=== PATIENT | female | born 2000 | race Caucasian/White ===

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

== ENCOUNTER → 2021-07-06 | Outpatient (CLI) | payer OTHER ==
[~2021-07-06] MED LIST changes: +ACHD5005 PO; -HYDR-3812 PO
--- NOTE | 2021-07-06 11:48 | Diagnostic Imaging Report ---
PROCEDURE: Pelvic comp/transvaginal sonogram. TECHNIQUE: Complete transabdominal and transvaginal pelvic ultrasound was performed. In addition, limited pelvic Doppler was performed. INDICATION: Pelvic pain. Uterus is retroverted measuring 6.3 x 3.9 x 4.5 cm. Endometrium is 6 mm in thickness. No myometrial mass is detected. Right ovary measures 3.0 x 2.0 x 3.5 cm, left ovary measures 3.0 x 2.0 x 2.5 cm. Left ovary contains a partially collapsed cyst measuring 9 mm in size. Both ovaries demonstrate blood flow. No adnexal mass is seen. There is trace free fluid present. IMPRESSION: Small partially collapsed left ovarian cyst. The study is otherwise unremarkable. Dictated by: Dictated on workstation # [id number]
== END ==
LOC: RAD 09:37
PROVIDERS: ATTEND Obstetrics & Gynecology
DX: N83.202 Unspecified ovarian cyst, left side (principal)
CPT/HCPCS: 76830; 76856

== ENCOUNTER 2022-07-08 04:59 | Inpatient (IN) | payer MEDICAID ==
[2022-07-08] VITALS (39 sets, daily range): BP systolic 101–169; BP diastolic 53–89
[~2022-07-08] VITALS: Ht 165.1 cm; Wt 89.2 kg
[2022-07-08 05:30] LABS: BILIRUBIN,URINE NEGATIVE (NEGATIVE); CLARITY,URINE SL CLOUDY; COLOR,URINE YELLOW; GLUCOSE, URINE (UA) NEGATIVE (NEGATIVE); KETONES,URINE NEGATIVE (NEGATIVE); LEUKOCYTE ESTERASE ,URINE TRACE (NEGATIVE); NITRITE,URINE NEGATIVE (NEGATIVE); PH,URINE 6.5 (5-9); PROTEIN,URINE NEGATIVE (NEGATIVE)
[2022-07-08 05:48] LABS: BACTERIA,URINE FEW /HPF
[2022-07-08] MEDS ORDERED: CATHETER FLUSH 10 ML SYR IV SCH ×2 (06:00→14:00)
[2022-07-08] MEDS ORDERED: MINERAL OIL 30 ML UDC TOP PRN (06:00)
[2022-07-08] MEDS ORDERED: LIDOCAINE/EPI 2% 1:200,00 (XYLOCAINE) 10 ML VIAL INJ PRN (06:00)
[2022-07-08] MEDS ORDERED: D5 LR IV SOLUTION 1,000 ML IV SCH (06:00)
[2022-07-08] MEDS ORDERED: BUTORPHANOL INJ 2 MG/ML (STADOL) VIAL IV ONE (06:00)
[2022-07-08] MEDS ORDERED: BUTORPHANOL INJ 2 MG/ML (STADOL) VIAL ONE (06:05)
[2022-07-08 06:06] LABS: BASOPHILS % (AUTO) 0 % (0-10); EOSINOPHILS % (AUTO) 0 % (0-10); HEMATOCRIT 36 % (35-52); HEMOGLOBIN 12.1 g/dL (11.5-16.0); LYMPHOCYTES # (AUTO) 2.2 10^3/uL (1.0-4.0); LYMPHOCYTES % (AUTO) 14 % (12-44); MEAN CORPUSCULAR HEMOGLOBIN 30 pg (25-34); MEAN CORPUSCULAR HGB CONC 34 g/dL (32-36); MEAN CORPUSCULAR VOLUME 89 fL (80-99); MEAN PLATELET VOLUME 11.7 fL (9.0-12.2); MONOCYTES # (AUTO) 0.8 10^3/uL (0.0-1.0); MONOCYTES % (AUTO) 5 % (0-12); NEUTROPHILS # (AUTO) 12.3 10^3/uL (1.8-7.8); NEUTROPHILS % (AUTO) 80 % (42-75); PLATELET COUNT 198 10^3/uL (130-400); WHITE BLOOD COUNT 15.4 10^3/uL (4.3-11.0)
[2022-07-08] MEDS ORDERED: fentaNYL 2 mcg/ml BUPIVA 0.125 100 ML ONE (06:06)
[2022-07-08] MEDS ORDERED: LACTATED RINGERS 1,000 ML IV ONE (06:06)
[2022-07-08] MEDS ORDERED: BUPIVACAINE 0.25% 30 ML (SENSORCAINE) VIAL ONE (07:02)
[2022-07-08] MEDS ORDERED: fentaNYL INJ 100 MCG/2 ML AMP ONE (07:02)
[2022-07-08] MEDS ORDERED: diphenhydrAMINE 50 MG/ML INJ (BENADRYL) IV PRN (07:45)
[2022-07-08] MEDS ORDERED: LACTATED RINGERS 1,000 ML IV SCH (07:45)
[2022-07-08] MEDS ORDERED: ONDANSETRON 4 MG/2 ML (SDV) Z0FRAN IV PRN (07:45)
[2022-07-08] MEDS ORDERED: fentaNYL 2 mcg/ml BUPIVA 0.125 100 ML EPI SCH (07:45)
[2022-07-08] MEDS ORDERED: NALOXONE 0.4 MG/ML 1 ML (NARCAN) VIAL IV PRN (07:45)
[2022-07-08] MEDS ORDERED: OXYTOCIN PRE-MIX DRIP 500 ML IV ONE ×2 (09:32→11:25)
[2022-07-08] MEDS: OXYTOCIN PRE-MIX DRIP 500 ML IV SCH ×2 (10:56→11:26)
--- NOTE | 2022-07-08 11:22 | History & Physical-OB ---
OB - Chief Complaint & HPI Date/Time Date of Admission: Date of Admission: Jul 08, 2022 at 05:57 Date seen by a Provider: Jul 08, 2022 Time Seen by a Provider: 10:10 Chief Complaint/History Hx : 1 Hx Para: 0 Expected Date of Delivery: Jul 08, 2022 Gestational Age in Weeks: 40 Gestational Age in Days: 0 History of Labs O+, Ab neg, Rub Imm HIV/RPR/HepB/C NR GBS neg Allergies and Home Medications Allergies Coded Allergies: No Known Drug Allergies (Unverified , 02/16/18) Patient Home Medication List Home Medication List Reviewed: Yes Amoxicillin/Potassium Clav (Augmentin 500-125 Tablet) 1 Each Tablet, 1 TAB PO BID Prescribed by: ADDY LOPEZ on 02/19/18 1029 Cefdinir (Cefdinir) 300 Mg Capsule, 300 MG PO BID Prescribed by: KRYSTIN BALDERRAMA on 03/23/18 0103 Ferrous Sulfate (Iron) 325 Mg Tablet, 325 MG PO DAILY, (Reported) Entered as Reported by: LINDSAY IBARRA on 02/16/18 0857 Hydrocodone Bit/Acetaminophen (Lortab 5 Mg Tablet) 1 Each Tablet, 1-2 TAB PO Q4H PRN for PAIN Prescribed by: ADDY LOPEZ on 02/19/18 1029 OB - History Hx of Present Care: Yes Ultrasounds: Normal mid trimester US Obstetrical Complications: None Medical Complications: None Obstetrical History Hx : 1 Hx Para: 0 Delivery History Hx Blood Disorders: Yes (ANEMIA) Adverse Rxn to Tranfusion: No (HAS HAD BLOOD WITH NO REACTION) Patient Past Medical History N/A Social History/Family History Alcohol Use: Denies Use Recreational Drug Use: No 2nd Hand Smoke Exposure: No Immunizations Hepatitis A: No Hepatitis B: No Tetanus Booster (TDap): Less than 5yrs Rubella: immune RPR/VDRL: Negative GBS Status: Negative HBsAG: Negative OB - Admission Exam Physical Exam Vitals: Vital Signs 07/08/22 07/08/22 09:45 10:00 Temp 36.6 Pulse 69 Resp 18 B/P (MAP) 130/85 (100) Pulse Ox 98 O2 Delivery Room Air HEENT: NCAT Heart: Rhythm Normal Lungs: Clear Abdomen: Gravid Cervical Dilatation: 10cm Effacement: 100% Station: +1 Membranes: Ruptured Amniotic Fluid: Clear Heart Rate: 140's Accelerations: Accelerations Present Decelerations: No Decelerations Associate Quality Engineer Variability: Average (6-25) Contractions on Admission: < 5 Minutes Apart Labs Laboratory Tests Test 07/08/22 05:10 07/08/22 05:47 Range/Units Urine Color YELLOW Urine Clarity SL CLOUDY Urine pH 6.5 5-9 Urine Specific [place] 1.020 1.016-1.022 Urine Protein NEGATIVE NEGATIVE Urine Glucose (UA) NEGATIVE NEGATIVE Urine Ketones NEGATIVE NEGATIVE Urine Nitrite NEGATIVE NEGATIVE Urine Bilirubin NEGATIVE NEGATIVE Urine Urobilinogen 0.2 < = 1.0 MG/DL Urine Leukocyte Esterase TRACE H NEGATIVE Urine RBC (Auto) NEGATIVE NEGATIVE Urine RBC NONE /HPF Urine WBC 2-5 /HPF Urine Squamous Epithelial Cells 5-10 /HPF Urine Crystals NONE /LPF Urine Bacteria FEW H /HPF Urine Casts NONE /LPF Urine Mucus SMALL H /LPF Urine Culture Indicated YES White Blood Count 15.4 H 4.3-11.0 10^3/uL Red Blood Count 4.04 3.80-5.11 10^6/uL Hemoglobin 12.1 11.5-16.0 g/dL Hematocrit 36 35-52 % Mean Corpuscular Volume 89 80-99 fL Mean Corpuscular Hemoglobin 30 25-34 pg Mean Corpuscular Hemoglobin Concent 34 32-36 g/dL Red Cell Distribution Width 14.0 10.0-14.5 % Platelet Count 198 130-400 10^3/uL Mean Platelet Volume 11.7 9.0-12.2 fL Immature Granulocyte % (Auto) 1 % Neutrophils (%) (Auto) 80 H 42-75 % Lymphocytes (%) (Auto) 14 12-44 % Monocytes (%) (Auto) 5 0-12 % Eosinophils (%) (Auto) 0 0-10 % Basophils (%) (Auto) 0 0-10 % Neutrophils # (Auto) 12.3 H 1.8-7.8 10^3/uL Lymphocytes # (Auto) 2.2 1.0-4.0 10^3/uL Monocytes # (Auto) 0.8 0.0-1.0 10^3/uL Eosinophils # (Auto) 0.0 0.0-0.3 10^3/uL Basophils # (Auto) 0.0 0.0-0.1 10^3/uL Immature Granulocyte # (Auto) 0.1 0.0-0.1 10^3/uL OB - Assessment/Plan/Diagnosis Assessment Assessment: active labor Admission Dx Third Trimester 40 week gestation Admission Status: Inpatient Order (span 2 midnights) Reason for Inpatient Admission: Active labor Plan Other Plan 22 yo @ 40.0 wga here in active labor Plan - GBS neg - Epidural for pain control - Expectant management LIZETH QUINTEROS MD Jul 08, 2022 11:22
--- NOTE | 2022-07-08 11:32 | OB Labor & Delivery Record ---
Vag Delivery Note Vag Delivery Note Date of Delivery: 07/08/22 Preoperative Diagnosis: Sofy Celeste is a (22 /Para 1/0,Gestational Age (wks)40.0 here in active labor Postoperative Diagnosis: Same Surgeon: LIZETH QUINTEROS MD Scroll Shear Operator: None Anesthesia: Epidural Delivery Type: @ 1050 Findings: Viable female , apgars 8/9, weight 7#8, 3396 grams Lacerations: Right labial and left periurethral Intact placenta with 3 vessel cord. No nuchal cord, body cord or shoulder dystocia Estimated Blood Loss: 120 ml Complications: None Condition: Stable Description of Procedure: The patient is a 22 year old female who presented in active labor. She was admitted and informed consent was obtained. Her labor course was unremarkable. She progressed to complete dilatation and began to push. She was then set up for delivery. The infant's head was delivered atraumatically in the ZOHREH position. The shoulders and remainder of the infant's body were then delivered without difficulty. Upon delivery, the head was held below the level of the perineum and the mouth and nares were bulb suctioned. The cord was doubly clamped and cut by FOB after 3 min delay and the was attended on maternal abdomen by the pediatric staff. An intact placenta with 3-vessel cord delivered via Sandeep and there was found to be minimal bleeding.~ Vigorous fundal massage was performed and the fundus was found to be firm. IV oxytocin was given. Examination of the vagina and perineum revealed a left labial and right tyler urethral laceration repaired in the usual fashion with 3-0 vicryl suture. Following the repair, sponge, instrument and needle counts were correct. Mom and baby were both in stable condition in the labor suite. Vitals - Labs Vital Signs - I&O Vital Signs Date Time Temp Pulse Resp B/P (MAP) Pulse Ox O2 Delivery O2 Flow Rate FiO2 07/08/22 10:00 36.6 69 18 130/85 (100) Room Air 07/08/22 09:45 64 18 136/84 (101) 98 Room Air 07/08/22 09:30 65 18 132/81 (98) 97 Room Air 07/08/22 09:15 68 18 123/66 (85) 97 Room Air 07/08/22 09:00 68 18 125/72 (89) 97 Room Air 07/08/22 08:42 71 18 122/70 (87) 96 Room Air 07/08/22 08:25 69 18 101/53 (69) 95 Room Air 07/08/22 08:10 36.8 67 18 123/71 (88) 97 Room Air 07/08/22 07:48 71 18 121/70 (87) 96 Room Air 07/08/22 07:43 70 18 133/80 (97) 96 Room Air 07/08/22 07:39 81 18 128/73 (91) 97 Room Air 07/08/22 07:36 71 20 119/75 (90) 97 Room Air 07/08/22 07:33 66 20 128/78 (95) 96 Room Air 07/08/22 07:30 69 18 135/83 (100) 96 Room Air 07/08/22 07:27 77 18 132/89 (103) 96 Room Air 07/08/22 07:24 68 20 137/82 (100) 99 Room Air 07/08/22 07:21 64 20 148/83 (104) 98 Room Air 07/08/22 07:18 67 20 149/87 (107) 98 Room Air 07/08/22 07:14 67 20 141/86 (104) 98 Room Air 07/08/22 07:12 36.5 77 18 136/74 (94) 97 Room Air 07/08/22 07:00 68 20 153/76 (101) Room Air 07/08/22 06:45 72 20 169/84 (112) Room Air 07/08/22 06:28 63 20 148/75 (99) Room Air 07/08/22 06:13 68 20 129/74 (92) Room Air 07/08/22 05:19 36.4 61 18 97 Room Air 07/08/22 05:15 36.4 61 18 97 Room Air 07/08/22 05:13 36.4 61 20 141/81 (101) 97 Room Air Labs Laboratory Tests 07/08/22 05:10: Urine Color YELLOW, Urine Clarity SL CLOUDY, Urine pH 6.5, Urine Specific [place] 1.020, Urine Protein NEGATIVE, Urine Glucose (UA) NEGATIVE, Urine Ketones NEGATIVE, Urine Nitrite NEGATIVE, Urine Bilirubin NEGATIVE, Urine Ur obilinogen 0.2, Urine Leukocyte Esterase TRACEH, Urine RBC (Auto) NEGATIVE, Urine RBC NONE, Urine WBC 2-5, Urine Squamous Epithelial Cells 5-10, Urine Crystals NONE, Urine Bacteria FEWH, Urine Casts NONE, Urine Mucus SMALLH, Urine Culture Indicated YES 07/08/22 05:47: White Blood Count 15.4H, Red Blood Count 4.04, Hemoglobin 12.1, Hematocrit 36, Mean Corpuscular Volume 89, Mean Corpuscular Hemoglobin 30, Mean Corpuscular Hem oglobin Concent 34, Red Cell Distribution Width 14.0, Platelet Count 198, Mean Platelet Volume 11.7, Immature Granulocyte % (Auto) 1, Neutrophils (%) (Auto) 80H, Lymphocytes (%) (Auto) 14, Monocytes (%) (Auto) 5, Eosinophils (%) (Auto) 0, Basophils (%) (Auto) 0, Neutrophils # (Auto) 12.3H, Lymphocytes # (Auto) 2.2, Monocytes # (Auto) 0.8, Eosinophils # (Auto) 0.0, Basophils # (Auto) 0.0, Immature Granulocyte # (Auto) 0.1 LIZETH QUINTEROS MD Jul 08, 2022 11:32
[2022-07-08] MEDS ORDERED: BENZOCAINE/MENTHOL (DERMOPLAST) 56 ML CAN TP PRN (11:45)
[2022-07-08] MEDS ORDERED: WITCH HAZEL(TUCKS) 40 EA JAR TOP PRN (11:45)
[2022-07-08] MEDS: IBUPROFEN 600 MG (MOTRIN) TAB PO SCH ×2 (12:19→18:24)
[2022-07-08] MEDS: ACETAMINOPHEN 500 MG TAB (TYLENOL) PO SCH ×2 (12:19→18:25)
[2022-07-08] MEDS: DOCUSATE SODIUM 100 MG (COLACE) CAP PO SCH (21:42)
[2022-07-09 00:57] VITALS: BP 117/59
[2022-07-09] MEDS: IBUPROFEN 600 MG (MOTRIN) TAB PO SCH ×3 (00:57→13:00)
[2022-07-09] MEDS: ACETAMINOPHEN 500 MG TAB (TYLENOL) PO SCH ×3 (00:57→13:00)
[2022-07-09 03:50] VITALS: BP 123/80
[2022-07-09 06:01] LABS: BASOPHILS % (AUTO) 0 % (0-10); EOSINOPHILS # (AUTO) 0.1 10^3/uL (0.0-0.3); EOSINOPHILS % (AUTO) 1 % (0-10); HEMATOCRIT 32 % (35-52); HEMOGLOBIN 10.6 g/dL (11.5-16.0); LYMPHOCYTES # (AUTO) 2.5 10^3/uL (1.0-4.0); LYMPHOCYTES % (AUTO) 24 % (12-44); MEAN CORPUSCULAR HEMOGLOBIN 29 pg (25-34); MEAN CORPUSCULAR HGB CONC 33 g/dL (32-36); MEAN CORPUSCULAR VOLUME 89 fL (80-99); MEAN PLATELET VOLUME 11.6 fL (9.0-12.2); MONOCYTES # (AUTO) 0.6 10^3/uL (0.0-1.0); MONOCYTES % (AUTO) 6 % (0-12); NEUTROPHILS # (AUTO) 7.3 10^3/uL (1.8-7.8); NEUTROPHILS % (AUTO) 69 % (42-75); PLATELET COUNT 168 10^3/uL (130-400); WHITE BLOOD COUNT 10.5 10^3/uL (4.3-11.0)
[2022-07-09 08:00] VITALS: BP 121/74
--- NOTE | 2022-07-09 08:23 | Anesthesia-Regional Post-Op ---
Regional Patient Condition Mental Status: Alert, Oriented x3 Circulation: Same as Pre-Op Headache: Absent Sensation: Full Recovery Motor Block: Absent Post Op Complications Complications None Follow Up Care/Instructions Patient Instructions None needed. Anesthesia/Patient Condition Patient is doing well, no complaints, stable vital signs, no apparent adverse anesthesia problems. No complications reported per nursing. D/C home per [facility] Criteria: Yes JUSTICE RO CRNA Jul 09, 2022 08:23
[2022-07-09] MEDS ORDERED: FERROUS SULF 325 MG (IRON) TAB PO SCH (09:00)
[2022-07-09] MEDS: DOCUSATE SODIUM 100 MG (COLACE) CAP PO SCH (10:37)
[2022-07-09] MEDS ORDERED: IBUP-844 PO (10:49)
--- NOTE | 2022-07-09 10:50 | Short Stay Summary ---
Discharge Summary Hospital Course Final Diagnosis: see Hospital Course Hospital Course Date of Admission: Jul 08, 2022 at 05:57 Admission Diagnosis : 1. 40wk GA, spontaneous onset of labor Family Physician/Provider: Pedro Date of Discharge: 07/09/22 Discharge Diagnosis: 1. 40wk GA, GREG s/p 2. R labial and L periurethral laceration Hospital Course: Routine course Labs and Pending Lab Test: Laboratory Tests 07/09/22 05:15: White Blood Count 10.5, Red Blood Count 3.61L, Hemoglobin 10.6L, Hematocrit 32L, Mean Corpuscular Volume 89, Mean Corpuscular Hemoglobin 29, Mean Corpuscular Hemoglobin Concent 33, Red Cell Distribution Width 14.2, Platelet Count 168, Mean Platelet Volume 11.6, Immature Granulocyte % (Auto) 0, Neutrophils (%) (Auto) 69, Lymphocytes (%) (Auto) 24, Monocytes (%) (Auto) 6, Eosinophils (%) (Auto) 1, Basophils (%) (Auto) 0, Neutrophils # (Auto) 7.3, Lymphocytes # (Auto) 2.5, Monocytes # (Auto) 0.6, Eosinophils # (Auto) 0.1, Basophils # (Auto) 0.0, Immature Granulocyte # (Auto) 0.0 Home Meds Reported Iron (Ferrous Sulfate) 325 Mg Tablet 325 Mg PO DAILY Assessment/Pt Instructions Follow up with Dr. Vasquez in 6wk. Discharge Instructions Discharge Diet: No Restrictions Discharge Physical Examination General Appearance: Alert, Oriented X3, Cooperative Psych/Mental Status: Mental Status NL Allergies: Coded Allergies: No Known Drug Allergies (Unverified , 02/16/18) Discharge Summary Date of Admission Jul 08, 2022 at 05:57 Date of Discharge AILEEN ERNST DO Jul 09, 2022 10:50
[2022-07-09 13:05] VITALS: BP 125/70
[2022-07-09 15:45] VITALS: BP 121/74
== END 2022-07-09 15:45 | disposition home or self-care (01) | DRG 807 ==
LOC: WSo 04:59 → LDRP 05:00 → WSo 05:56 → LDRP 05:57
PROVIDERS: ADMIT Family Medicine; ATTEND Family Medicine
PROC: 10E0XZZ Delivery of Products of Conception, External Approach (ICD-10-PCS; principal; 2022-07-08)
PROC: 0HQ9XZZ Repair Perineum Skin, External Approach (ICD-10-PCS; 2022-07-08)
PROC: 0UQMXZZ Repair Vulva, External Approach (ICD-10-PCS; 2022-07-08)
DX: O48.0 Post-term pregnancy (principal); Z37.0 Single live birth; O70.0 First degree perineal laceration during delivery; O71.82 Other specified trauma to perineum and vulva; Z3A.40 40 weeks gestation of pregnancy
CPT/HCPCS: 36415; 81000; 85025; 86850; 86900; 86901; 87088; 99212

== ENCOUNTER 2023-09-28 10:25 | Emergency (ER) | payer OTHER ==
[~2023-09-28 10:25] MED LIST changes: +IBUP-844 PO
[2023-09-28] MEDS ORDERED: Tetanus/Diphtheria/Pertussis (Acell) ADULT Vaccine 0.5 ML IM ONE (10:45)
[2023-09-28] MEDS ORDERED: AMOX1TAB12 PO (11:03)
--- NOTE | 2023-09-28 11:03 | ED General ---
General Chief Complaint: Bite-Animal/Human/Insect Stated Complaint: DOG BITE Nursing Triage Note: PT TO [facility] PT HAS DOG BITE TO L WRIST, TOP OF WRIST HAS SMALL .5CM LAC AND INNER WRIST APPROX .5CM. DOG WAS KNOWN TO PT AND IS UTD AND VACCINES. CLEANED W NS AND CHLORHEXADINE. NO BLEEDING NOTED Source of Information: Patient Exam Limitations: No Limitations History of Present Illness Date Seen by Provider: Sep 28, 2023 Time Seen by Provider: 10:38 Allergies and Home Medications Allergies Coded Allergies: No Known Drug Allergies (Unverified , 02/16/18) Patient Home Medication List Ferrous Sulfate (Iron) 325 Mg Tablet, 325 MG PO DAILY, (Reported) Entered as Reported by: LINDSAY IBARRA on 02/16/18 0857 Ibuprofen (Ibu) 600 Mg Tablet, 600 MG PO Q6H PRN for CRAMPS Prescribed by: AILEEN ERNST on 07/09/22 1049 Past Lsctvnc-Isgzkh-Nfaqub Hx Immunizations Up To Date Tetanus Booster (TDap): Less than 5yrs PED Vaccines UTD: Yes Seasonal Allergies Seasonal Allergies: No Past Medical History Surgeries: Yes (nasal surgery) Appendectomy Respiratory: No Cardiac: No Neurological: No Reproductive Disorders: No Female Reproductive Disorders: Menstrual Problems Sexually Transmitted Disease: No HIV/AIDS: No Genitourinary: No Gastrointestinal: Yes Ulcer Musculoskeletal: No Endocrine: No HEENT: Yes (DEVIATED SE[PTUM) Loss of Vision: Bilateral Hearing Impairment: Denies Cancer: No Psychosocial: No Integumentary: No Blood Disorders: Yes (ANEMIA) Adverse Reaction/Blood Tranf: No (HAS HAD BLOOD WITH NO REACTION) Family Medical History Patient reports no known family medical history. No Pertinent Family Hx, Cancer, Other Conditions/Hx Physical Exam Vital Signs Vital Signs - First Documented 09/28/23 10:35 Temp 36.8 Pulse 54 Resp 18 B/P (MAP) 126/86 (99) Pulse Ox 98 Capillary Refill : Less Than 3 Seconds Height, Weight, BMI Height: 5'6.00" Weight: 170lbs. 0.0oz. 77.578365sm; 32.72 BMI Method:Stated Progress/Results/Core Measures Suspected Sepsis SIRS Temperature: Pulse: 54 Respiratory Rate: 18 Blood Pressure 126 /86 Mean: 99 Results/Orders My Orders Orders - SAVI UREÑA MD Dipht/Pertuss(Acell)/Tet Adult (Dipht/Pe (09/28/23 10:45) Medications Given in ED Current Medications Medications Dose Ordered Sig/Selina Route Start Time Stop Time Status Last Admin Dose Admin Diphtheria/ Tetanus/Acell Pertussis 0.5 ml ONCE ONCE IM 09/28/23 10:45 09/28/23 10:46 DC 09/28/23 10:52 0.5 ML Vital Signs/I&O 09/28/23 10:35 Temp 36.8 Pulse 54 Resp 18 B/P (MAP) 126/86 (99) Pulse Ox 98 Capillary Refill : Less Than 3 Seconds Blood Pressure Mean: 99 Departure Impression Primary Impression: Dog bite Additional Impression: Need for tetanus booster Departure-Patient Inst. Referrals: LETY BOLANOS DO (PCP/Family) Primary Care Physician Patient Instructions: DOG BITE, DTaP Vaccine (Diphtheria, Tetanus, Pertussis) CDC Vaccine Information Statement (VIS) Add. Discharge Instructions: Complete the entire course of antibiotics as prescribed. Monitor for signs of infection such as increasing redness, increasing swelling, puslike drainage, fever, increasing pain with wrist movement, etc. Please return to care promptly if you notice the symptoms. You may take Tylenol (acetaminophen) and/or ibuprofen for pain. Cover your wounds when you are active or in dirty environments to keep them clean. Otherwise, you may leave them open to air. Return to care if you have any other problems or concerns. All discharge instructions reviewed with patient and/or family. Voiced understanding. Scripts Amoxicillin/Potassium Clav (Amox Tr-K Clv 875-125 mg Tab) 875 Mg-125 Mg Tablet 1 EACH PO BID, #10 TAB Prov: SAVI UREÑA MD 09/28/23 SAVI UREÑA MD Sep 28, 2023 11:03
[2023-09-28 11:05] VITALS: BP 126/86
== END 2023-09-28 11:05 | disposition home or self-care (01) ==
LOC: EDUNIT# 10:25 → ER 10:27
DX: S61.552A Open bite of left wrist, initial encounter (principal); Z23 Encounter for immunization; W54.0XXA Bitten by dog, initial encounter
CPT/HCPCS: 90715; 99284